=== PATIENT | male | born 1975 | race Caucasian/White ===

== ENCOUNTER 2022-02-02 18:15 | Emergency (ER) | payer SELFPAY ==
[~2022-02-02] VITALS: Ht 185.4 cm; Wt 89.8 kg
[2022-02-02] MEDS ORDERED: IV NS 0.9% 1,000 ML BAG IV ONE (18:30)
--- NOTE | 2022-02-02 18:45 | NUR ---
BLOOD DRAWN AND SENT TO LAB
--- NOTE | 2022-02-02 18:59 | NUR ---
PATIENT TAKEN TO CT VIA [facility]
[2022-02-02 19:26] LABS: SERUM AMMONIA 20 umol/L (11-32)
[2022-02-02 19:31] LABS: ALANINE AMINOTRANSFERASE 37 U/L (12-78); ALBUMIN 3.9 g/dL (3.4-5.0); ALCOHOL, BLOOD < 3 mg/dL (0-0); ALKALINE PHOSPHATASE 83 U/L (46-116); ASPARTATE AMINOTRANSFERASE 38 U/L (15-37); BILIRUBIN,DIRECT 0.1 mg/dL (0.0-0.2); BILIRUBIN,TOTAL 0.7 mg/dL (0.2-1.0); CALCIUM, SERUM 8.9 mg/dL (8.5-10.1); CARBON DIOXIDE 29 mmol/L (21-32); CHLORIDE 104 mmol/L (98-107); GLUCOSE 96 mg/dL (74-106); POTASSIUM 3.9 mmol/L (3.5-5.1); SODIUM SERUM 141 mmol/L (136-145); TOTAL PROTEIN, SERUM 7.3 g/dL (6.4-8.2); UREA NITROGEN, BLOOD 22 mg/dL (7-18)
[2022-02-02 19:39] LABS: THYROID STIMULATING HORMONE 3.104 uIU/mL (0.358-3.74)
[2022-02-02 19:57] LABS: BASOPHILS % (AUTO) 0.4 % (0.0-2.0); EOSINOPHILS % (AUTO) 1.2 % (0.0-6.0); HEMATOCRIT 46 % (39-51); HEMOGLOBIN 15.6 g/dL (13.5-17.5); LYMPHOCYTES # (AUTO) 1.5 K/uL (0.8-4.8); MEAN CORPUSCULAR HGB CONC 34 g/dl (31.0-36.0); MEAN CORPUSCULAR VOLUME 90 fL (80-96); MONOCYTES # (AUTO) 0.4 K/uL (0.1-1.30); MONOCYTES % (AUTO) 5.6 % (2.0-12.0); NEUTROPHILS # (AUTO) 4.7 K/uL (1.8-8.9); NEUTROPHILS % (AUTO) 70.8 % (43.0-81.0); PLATELET COUNT (AUTO) 187 K/uL (150-450); RED BLOOD CELL COUNT(AUTO) 5.09 MIL/uL (4.5-6.0); WHITE BLOOD COUNT (AUTO) 6.6 K/uL (4.3-11.0)
--- NOTE | 2022-02-02 20:46 | NUR ---
IV CANNULA REMOVED
--- NOTE | 2022-02-02 20:46 | NUR ---
Patient discharged to home in stable condition. Written and verbal after care instructions given. Patient verbalizes understanding of instruction.
[2022-02-02 20:47] VITALS: BP 127/77
== END 2022-02-02 20:47 | disposition home or self-care (01) ==
LOC: ER 18:17
DX: R55 Syncope and collapse (principal); Z60.2 Problems related to living alone
CPT/HCPCS: 99285; 96360; 93005; 71045; 72125; 70450; 82140; 85025; 80048; 80076; 84443; 85730; 80320; 80307; J7030; 36415; G0480